=== PATIENT | female | born 1930 | race Caucasian/White ===

== ENCOUNTER 2016-07-27 11:37 | Inpatient (IN) ==
[2016-07-27] MEDS ORDERED: ONDANSETRON ODT 4 MG TABLET PO ONE ×2 (11:58→12:00)
[2016-07-27] MEDS ORDERED: SODIUM CHLORIDE 0.9% 500 ML IV STA (12:04)
[2016-07-27] MEDS ORDERED: PANTOPRAZOLE 40 MG VIAL IV STA (12:04)
[2016-07-27] MEDS ORDERED: METOCLOPRAMIDE 10 MG/2 ML VIAL IV STA (12:04)
[2016-07-27] MEDS ORDERED: hydrALAZINE 20 MG/1 ML VIAL IV STA (12:07)
--- NOTE | 2016-07-27 12:14 | Emergency Department Note ---
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 patient refuses to have b/p taken during triage, yelled loudly and stated that she was going to take b/p cuff off Mode of Arrival: Stretcher Limitations: Altered Mental Status Source: Family Time Seen by Provider: 07/27/16 12:04 - History of Present Illness HPI Narrative: This 85-year-old white female presents with a history of being her normal personality when she went to bed last night. She was called by the leasing machine tender this morning and initially on that conversation over the phone she appeared to be still her normal self. However later in the morning this individual was called by the patient who told him she was on the floor and could not move. The gentleman went to her home where he found her on the floor complaining initially of intense nausea and vomiting with inability to move; however, after a wave of emesis she began to move about and she was brought to the hospital. Since being in the ER she has been combative and very agitated; however, family states this is not out of character when she is in a stressful situation such as this. They state she complained of a headache behind the right eye yesterday although the patient does not complain of one currently. She is at this time oriented 3 but extremely anxious. During the interview she did have a severe wave of nausea which was curtailed by Matti. At the moment she is in no acute medical distress. Onset (ago): hour(s) (Patient presents 4 hours post onset of symptoms) Consistency: constant Allergies/Adverse Reactions: Allergies Allergy/AdvReac Type Severity Reaction Status Date / Time Penicillins Allergy Unknown Unknown/Unable Verified 08/16/15 10:33 to obtain Home Medications: Home Medications Medication Instructions Recorded Confirmed Type Unable To Obtain [Unable to Obtain] 07/27/16 07/27/16 History Review of System - Review of System 12 point system: reviewed and no additional remarkable complaints except as stated - Review of System Gastrointestinal: Present: as per HPI Neurological: Present: as per HPI Medical,Surgical,& Family Hx - Social History Smoking Status: Never smoker Frequency of Alcohol Use: None Type of Drug Use: None Exam Physical Examination: GENERAL: Well developed, well nourished elderly white female, very anxious, but in no acute distress. HEENT: Normocephalic. No trauma. Moist mucous membranes. EOMI. PERRLA. ENT NML NECK: Supple. No adenopathy. CARDIAC: Regular. No murmurs. Heart rate 89 CHEST: Clear to auscultation. No respiratory distress. O2 sat 97%. Firm hard nontender walnut size mass right breast lower outer quadrant ABDOMEN: Soft. Nontender. Hyperactive bowel sounds. EXTREMITIES: No trauma. Normal ROM. No pedal edema. SKIN: No diaphoresis. No rash. Bilateral stasis dermatitis, left worse than right NEURO: Alert. Oriented 3. Motor, sensory, vibratory intact. No focal deficits. Vital Signs: Vital Signs Temperature 96.3 F L 07/27/16 11:45 Pulse Rate 89 07/27/16 11:45 Respiratory Rate 18 07/27/16 11:45 O2 Sat by Pulse Oximetry 97 07/27/16 11:45 Course - Reevaluation(s) Reevaluation #1: Discussed with patient and family the fact that she still has persistent resting tachycardia and elevated blood pressure as well as symptoms of nausea dysuria and urgency that we should hospitalize at least on an observation basis for stabilization of her situation. I have advised them that in all probability this is an early UTI. - Consultations Consultation #1: Discussed with hospitalist service who will admit for further evaluation treatment. Results - Labs CBC & BMP: 07/27/16 12:14 07/27/16 12:14 Labs: I reviewed the laboratory results and noted the low potassium and surprisingly clean urinalysis. - Impressions EKG: Sinus rhythm at 89 with occasional rare PAC. Normal UT interval and QRS duration. Nonspecific ST changes. No acute injury pattern noted. - Diagnostic Findings Procedure: Chest x-ray: image reviewed by me, report reviewed by me (Borderline cardiomegaly with uncoiling of the aorta are otherwise no acute findings.), CT: image reviewed by me, report reviewed by me (Head: Cerebral atrophy with microvascular ischemia but no acute injury pattern) Disposition Clinical Impression: Hypertension, Tachycardia, Right breast mass, Early cystitis Case discussed with: patient, patient's family Condition: Stable Time of Disposition: 14:27
[2016-07-27] MEDS ORDERED: PANTOPRAZOLE 40 MG VIAL IV ONE (12:32)
[2016-07-27] MEDS ORDERED: hydrALAZINE 20 MG/1 ML VIAL ONE (12:33)
[2016-07-27] MEDS ORDERED: METOCLOPRAMIDE 10 MG/2 ML VIAL ONE (12:33)
--- NOTE | 2016-07-27 12:35 | CT Report ---
Referring physician: Basil Bingham Exam: CT brain without contrast Date: 07/27/2016 Comparison: 06/12/2016 Reason: Alteration of consciousness Technique: Axial images of the head were obtained without the use of contrast. Total DLP was 914.60 mGy*cm. Findings: No hydrocephalus or midline shift is present. There is no evidence of an acute infarction, recent intracranial hemorrhage or abnormal mass effect. Diffuse atrophy with extensive T2 hyperintensities. Some of the findings are felt to be consistent with chronic ischemic infarcts especially in the right centrum semiovale location. The osseous structures appear intact. The mastoid air cells are clear. Persistent mucosal thickening/fluid in the ethmoid air cells with arterial calcifications. Impression: No acute intracranial abnormality is identified. 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 Residual ethmoid sinusitis. The CT exam was performed using one or more of the following dose reduction techniques: Automated exposure control and adjustment of the mA and/or kV according to patient size. PROCEDURE INTERPRETED AT [facility] DEPARTMENT OF RADIOLOGY Final Report Signed by: Dr. Katie Mina
--- NOTE | 2016-07-27 12:39 | XRay Report ---
Portable chest Date: 07/27/2016 Clinical history: Alteration of consciousness Comparison: 06/12/2016 Technique: Portable AP sitting chest Findings: The heart is mildly enlarged with left ventricular prominence and uncoiling of the aorta. The lungs and mediastinum are stable in appearance with degenerative changes. Impression: Minimal cardiomegaly with left ventricle prominence and uncoiling of the aorta which can be seen with hypertensive cardiovascular disease. No acute parenchymal findings. PROCEDURE INTERPRETED AT [facility] DEPARTMENT OF RADIOLOGY Final Report Signed by: Dr. Katie Mina
[2016-07-27 12:46] LABS: Basophils % 0.6 % (0.0-0.8); Eosinophils # 0.1 10*3/uL (0.0-0.87); Eosinophils % 1.7 % (0.00-10.9); Hematocrit 40.8 VOL% (35.7-47.0); Hemoglobin 13.2 GM/DL (12.0-16.0); Immature Granulocytes % 0.3 %; Immature Granulocytes Absolute 0.02 #; Lymphocytes # 1.1 10*3/uL (1.4-4.0); Lymphocytes % 15.6 % (21.3-54.2); Mean Corpuscular HGB Conc 32.4 GM/DL (32-36); Mean Corpuscular Hemoglobin 31 PG (27-34); Mean Corpuscular Volume 94.2 FL (87-102); Mean Platelet Volume 10.2 FL (9.6-12.0); Monocytes # 0.5 10*3/uL (0.11-0.8); Monocytes % 7.4 % (1.7-12.7); Neutrophils # 5.2 10*3/uL (1.4-7.4); Neutrophils % 74.4 % (38.7-73.9); Platelet Count 189 T/CUMM (130-400); Red Blood Count 4.33 MC/CUMM (3.8-5.5); Red Cell Distribution Width 11.9 % (9.3-17.3)
[2016-07-27 12:56] LABS: PT Patient Result 10.8 SECS
[2016-07-27 13:14] LABS: Ammonia < 10 UMOL/L (11-32)
[2016-07-27 13:16] LABS: Alanine Aminotransferase 22 U/L (13-56); Albumin 3.6 G/DL (3.4-5.0); Alkaline Phosphatase 80 U/L (45-117); Aspartate Amino Transferase 21 U/L (0-37); Blood Urea Nitrogen 18 MG/DL (7-18); CKMB % 3.6 %; Free T4 (Free Thyroxine) 1.07 NG/DL (0.76-1.46); Glucose 142 MG/DL (74-106); Potassium 3.4 MMOL/L (3.5-5.1); Sodium 143 MMOL/L (136-145); Total Protein 6.9 G/DL (6.4-8.3); Troponin I Only 0.017 NG/ML (0.00-0.045)
[2016-07-27] MEDS ORDERED: POTASSIUM BICARB EFFERVESCENT 25 MEQ TABLET PO ONE (13:36)
--- NOTE | 2016-07-27 13:40 | EKG Report ---
Stationary ECG Study [facility] ER Test Date: 07/27/2016 1:03:58 PM Pat Name: DANDY MENDIOLA Department: Room: 291 Gender: F Mangle Tender: : 1930 Requested by: Basil South Order Number: [id number] Reading MD: CYNTHIA CABALLERO Intervals [place] Rate: 89 P: 103 IN: 134 QRS: 12 QRSD: 93 T: 89 QT: 388 QTc: 435 Interpretive Statements SINUS RHYTHM WITH OCCASIONAL SUPRAVENTRICULAR PREMATURE COMPLEXES NONSPECIFIC T-WAVE ABNORMALITY Electronically Signed On 07-28-16 12:03:52 CDT by CYNTHIA CABALLERO [email or web address]
[2016-07-27 13:55] LABS: Apearance,Urine CLEAR (Clear); Bacteria,Urine Occasional /HPF (Few); Bilirubin,Urine Negative (Negative); Blood, Urine Negative (Negative); Glucose,Urine (UA) 50 mg/dL (Negative); Ketones,Urine 5 mg/dL (Negative); Mucus,Urine Occasional /LPF (Occasional); Nitrite,Urine Negative (Negative); Protein,Urine 100 MG/DL; RBC,Urine 2 /HPF (0-4); Squamous Epithelial Cell,Urine Occasional /HPF (0-10); Urine Color Yellow (Yellow); Urine Specific Gravity 1.012 (1.001-1.035); Urine Urobilinogen < 2.0 EU/DL (0.2-1.0); WBC,Urine 2 /HPF (0-6)
[2016-07-27 14:01] LABS: Barbiturates Screen,Urine Negative (Negative); Benzodiazepines Screen,Urine Negative (Negative); Cannabinoid Screen,Urine Negative (Negative); Opiate Screen,Urine Negative (Negative); Phencyclidine Screen,Urine Negative (Negative)
[2016-07-27] MEDS ORDERED: METOPROLOL TARTRATE 5 MG/5 ML VIAL IV STA (14:24)
[2016-07-27] MEDS ORDERED: MAGNESIUM SULF RIDER 2 GM in PREMIX 1 EACH IV PRN (14:32)
[2016-07-27] MEDS ORDERED: MAGNESIUM SULF RIDER 4 GM in PREMIX 1 EACH IV PRN (14:32)
[2016-07-27] MEDS ORDERED: POTASSIUM CHLORIDE 20 MEQ PACK ONE (15:04)
--- NOTE | 2016-07-27 15:06 | Hospitalist History & Physical ---
Assessment and Plan (1) Tachycardia Status: Acute Assessment and plan: Not sure the cause of this probably is a little dehydration we'll hydrate overnight were also supplement potassium and see the patient does Current Visit: Yes (2) Nausea Status: Acute Assessment and plan: Treat symptomatically, check amylase and lipase, check a KUB to make sure there is no evidence of any obstruction Current Visit: Yes (3) Hypertension Status: Acute Assessment and plan: Watch right now start home medicines and see how she does Current Visit: Yes (4) Breast mass, right Status: Acute Assessment and plan: Check mammogram Current Visit: Yes History of Present Illness Chief complaint: nausea vomiting altered mental status History of present illness: Ms. Ya is a 85 year old female was her usual state of health last night when she went to bed and then this morning she states that she had difficulty getting up this morning and was found on the floor and was unable to get back up she's dated she began throwing up shortly before then and was apparently very combative and agitated patient denies any diarrhea or fever she also complained of a headache this started last night behind her right eye arrival she was anxious but oriented his had multiple spells of nausea while here in the emergency room. She denies any chest pain or chest tightness she denies any shortness of breath has no chills fever nothing seems to make her nausea better nothing seems to make it worse no other associated symptoms Workup in the emergency room showed a potassium of 3.4 bun 18 a creatinine of 0.9 and glucose of 142 normal thyroid functions unremarkable urinalysis and negative drug screen. chest x-ray was normal EKG normal sinus rhythm CT head unremarkable Home Medications Medication Instructions Recorded Confirmed Type Unable To Obtain [Unable to Obtain] 07/27/16 07/27/16 History Allergies Allergy/AdvReac Type Severity Reaction Status Date / Time Penicillins Allergy Unknown Unknown/Unable Verified 08/16/15 10:33 to obtain Medical,Surgical,& Family Hx - Medical History Cardio: History of: Hypertension Psychological: History of: Anxiety Disorders - Surgical History Surgical History: noncontributory - Family History Family History: noncontributory - Social History Smoking Status: Never smoker Frequency of Alcohol Use: None Type of Drug Use: None Review of systems: Constitutional: No fatigue or fever Eyes: No loss of vision or blurred vision Ears: No decreased hearing no ear pain Mouth no lip swelling or sore throat Cardiovascular no chest pain no claudication Respiratory no cough or shortness of breath GI no abdominal pain or bloating or bleeding : No urinary frequency or hesitancy musculoskeletal: No Arthralgias or back pain, very weak Psychiatric: Confusion memory loss Endocrine: No polydipsia or polyuria Hematology: No easy bleeding or bruising 12 point review of systems otherwise unremarkable Exam - Constitutional Vitals: Period Temp Pulse Resp BP Sys/Baez Pulse Ox Last 24 Hr 96.3 F 89 18 97 Exam: Constitutional: Patient in no apparent distress. Anxious Eyes: Conjunctivae and lids are normal Pupils equal round react to light and accommodation irises are normal HEENT: External ears and nose without lesions masses or scarring Oropharynx without erythema exudates or thrush Neck is supple without masses no jugular venous distention Lungs: Lungs are clear to auscultation and resonant percussion Cardiovascular: Heart auscultation regular rate and rhythm without murmur rub or gallop PMI in the midclavicular line by palpation carotid arteries 2+ without bruits bowel abdomen: Bowel sounds normoactive no masses no rebound or regular tenderness no organomegaly Lymphatic: No anterior posterior cervical or axillary adenopathy Musculoskeletal: No active synovitis no malalignment of the joints good range of motion of upper and lower extremities Skin : normal to inspection and palpation Neurologic: Cranial nerves II through XII intact motor sensory intact DTRs 2+ negative cerebellar signs Psychiatric: Oriented to person place and time normal memory normal mood and affect normal judgment Rx scarring of her lower extremities looks like chronic venous insufficiency no evidence of edema, diffusely weak Results - Labs CBC & BMP: 07/27/16 12:14 07/27/16 12:14
[2016-07-27] MEDS: ONDANSETRON 4 MG/2 ML VIAL IV PRN ×3 (15:20→22:44)
[2016-07-27 16:27] LABS: CKMB % 3.3 %
[2016-07-27 16:32] LABS: Troponin I Only 0.063 NG/ML (0.00-0.045)
[2016-07-27] MEDS: SODIUM CHLORIDE 0.9% 1,000 ML IV SCH (16:34)
[2016-07-27] MEDS: CIPROFLOXACIN INJ 400 MG in PREMIX 1 EACH IV SCH (16:38)
[2016-07-27] MEDS: metroNIDAZOLE INJ 500 MG in PREMIX 1 EACH IV SCH (18:52)
[2016-07-27] MEDS: POTASSIUM CHLORIDE RIDER 10 MEQ in PREMIX 1 EACH IV PRN ×3 (21:16→23:55)
[2016-07-28] MEDS: SODIUM CHLORIDE 0.9% 1,000 ML IV SCH ×5 (01:05→23:14)
[2016-07-28] MEDS: metroNIDAZOLE INJ 500 MG in PREMIX 1 EACH IV SCH ×5 (01:09→22:10)
[2016-07-28] MEDS: CIPROFLOXACIN INJ 400 MG in PREMIX 1 EACH IV SCH ×2 (03:17→16:45)
[2016-07-28] MEDS: ONDANSETRON 4 MG/2 ML VIAL IV PRN ×2 (04:52→08:00)
[2016-07-28 08:37] LABS: Basophils % 0.1 % (0.0-0.8); Eosinophils % 0.2 % (0.00-10.9); Hemoglobin 11.8 GM/DL (12.0-16.0); Immature Granulocytes % 0.3 %; Immature Granulocytes Absolute 0.03 #; Lymphocytes # 0.9 10*3/uL (1.4-4.0); Lymphocytes % 9.3 % (21.3-54.2); Mean Corpuscular HGB Conc 31.9 GM/DL (32-36); Mean Corpuscular Hemoglobin 30 PG (27-34); Mean Corpuscular Volume 94.9 FL (87-102); Mean Platelet Volume 10.5 FL (9.6-12.0); Monocytes # 0.7 10*3/uL (0.11-0.8); Monocytes % 7.9 % (1.7-12.7); Neutrophils # 7.7 10*3/uL (1.4-7.4); Neutrophils % 82.2 % (38.7-73.9); Platelet Count 182 T/CUMM (130-400); Red Cell Distribution Width 12.1 % (9.3-17.3); White Blood Count 9.4 T/CUMM (4-12)
[2016-07-28] MEDS ORDERED: PANTOPRAZOLE 40 MG VIAL IV SCH (09:00)
--- NOTE | 2016-07-28 09:02 | Hospitalist Progress Note ---
Assessment and Plan (1) Tachycardia Status: Acute Assessment and plan: Not sure the cause of this probably is a little dehydration we'll hydrate overnight were also supplement potassium and see the patient does 3 history is pending this morning but she still remains weak, sure what's going on, her tachycardia has improved we'll do some orthostatic vital signs to see was going on here, because is up a little bit but I don't think that means anything we'll continue to follow them Current Visit: Yes (2) Nausea Status: Acute Assessment and plan: Treat symptomatically, check amylase and lipase, check a KUB to make sure there is no evidence of any obstruction 3 ongoing nausea, normal lipase and amylase him to go ahead and ask GI to evaluate Current Visit: Yes (3) Hypertension Status: Acute Assessment and plan: Watch right now start home medicines and see how she does Current Visit: Yes (4) Breast mass, right Status: Acute Assessment and plan: Check mammogram Current Visit: Yes Hospitalist: Subjective Interval history: Patient still feels like she is weak today she still having nausea intermittently when she stands him still feels weak when she stands up Exam - Constitutional Vitals: Period Temp Pulse Resp BP Sys/Baez Pulse Ox Last 24 Hr 97.1 F-99.1 F 88-99 16-20 147-218/74-102 94-96 Exam: Constitutional: Patient in no apparent distress. Anxious Eyes: Conjunctivae and lids are normal Pupils equal round react to light and accommodation irises are normal HEENT: External ears and nose without lesions masses or scarring Oropharynx without erythema exudates or thrush Neck is supple without masses no jugular venous distention Lungs: Lungs are clear to auscultation and resonant percussion Cardiovascular: Heart auscultation regular rate and rhythm without murmur rub or gallop PMI in the midclavicular line by palpation carotid arteries 2+ without bruits bowel abdomen: Bowel sounds normoactive no masses no rebound or regular tenderness no organomegaly Lymphatic: No anterior posterior cervical or axillary adenopathy Musculoskeletal: No active synovitis no malalignment of the joints good range of motion of upper and lower extremities Skin : normal to inspection and palpation Neurologic: Cranial nerves II through XII intact motor sensory intact DTRs 2+ negative cerebellar signs Psychiatric: Oriented to person place and time normal memory normal mood and affect normal judgment Rx scarring of her lower extremities looks like chronic venous insufficiency no evidence of edema, diffusely weak Results - Labs CBC & BMP: 07/28/16 08:05 07/27/16 12:14
[2016-07-28 09:09] LABS: Albumin 3.3 G/DL (3.4-5.0); Bilirubin,Total 0.5 MG/DL (0.2-1.0); Calcium 8.7 MG/DL (8.5-10.1); Magnesium 2.1 MG/DL (1.8-2.4); Potassium 3.8 MMOL/L (3.5-5.1); Total Protein 5.9 G/DL (6.4-8.3)
[2016-07-28 09:22] LABS: CKMB % 2.6 %
[2016-07-28 09:23] LABS: Troponin I Only 0.156 NG/ML (0.00-0.045)
[2016-07-28] MEDS: MECLIZINE 25 MG TABLET PO SCH ×3 (10:58→21:36)
[2016-07-28] MEDS ORDERED: PROMETHAZINE INJ 12.5 MG in SODIUM CHLORIDE 0.9% 50 ML IV PRN (12:21)
[2016-07-28] MEDS ORDERED: LORazepam 2 MG/1 ML VIAL IV PRN (12:21)
--- NOTE | 2016-07-28 12:28 | Gastrointestinal Consult Note ---
Assessment and Plan (1) Nausea and vomiting Status: Acute Assessment and plan: This patient seems to have nausea and vomiting possibly related to vertigo versus extreme gaze deviation. She may have labyrinthitis versus benign positional vertigo versus possible disturbance in her midbrain or cerebellum associated with TIA versus stroke. I do not believe the problem is her GI tract. I will start the patient on some Protonix basically to keep the acidity down her esophagus and prevent secondary erosive esophagitis. We can try putting the patient on little bit of Phenergan as the Zofran has been ineffective for her. I would not use metoclopramide, although the Antivert is a definitely something that could be tried. In patients have had like this in the past sometimes they have benefited from a low dose of lorazepam, will write this as an option as well. He may wish to get ENT involved and perhaps they can perform an Rebecca maneuver. if appropriate in their opinion. Current Visit: Yes (2) Constipation Status: Acute Assessment and plan: The patient states that she handles this with a single prune at home, but this is not a serious problem for the patient. Under no circumstances would she like to get another colonoscopy, nor does she wish to have an upper endoscopy, as she has related to me in no uncertain terms. We will certainly hold off on endoscopy for the present. Current Visit: Yes History of Present Illness Chief complaint: Nausea and vomiting on sudden movement/position change History of present illness: Ms. Ya is a 85 year old female who is actually a fairly good historian who is accompanied by her son and [id number] who provide additional history. She has never had a history of heartburn or indigestion of any significance and really does not take much in the way of medication at baseline. She certainly does not take NSAIDs. Yesterday she awoke with difficulty caused by extreme nausea upon getting out of the bed. Patient is fairly stable when she is laying flat in bed or upright but when changing positions seems to become extremely nauseated. On head motions at the bedside I do not appreciate gross nystagmus either on horizontal or vertical head motions however the patient looking in various directions seems to make her extremely nauseated even when her head is still. She does not have heartburn, indigestion, difficulty with swallowing, pain on swallowing, abdominal pain, or diarrhea. She does have mild constipation for which she takes one single prune per night. She was brought to the emergency room for this nausea and vomiting and has been admitted with hydration. Zofran does almost nothing and the Antivert does not appear to be effective for her. She has not yet tried Phenergan. She appears to be mildly agitated at times and may benefit from a low-dose benzodiazepine. She does not have a history of exposure to sick contacts. Home Medications Medication Instructions Recorded Confirmed Type Unable To Obtain [Unable to Obtain] 07/27/16 07/27/16 History Allergies Allergy/AdvReac Type Severity Reaction Status Date / Time Penicillins Allergy Unknown Unknown/Unable Verified 08/16/15 10:33 to obtain Medical,Surgical,& Family Hx - Medical History Cardio: History of: Hypertension Psychological: History of: Anxiety Disorders - Surgical History Reproductive Surgeries: Surgical HX of;: Hysterectomy - Family History Family History: Reports;: Family Cancer (COLON), Family Hypertension Denies;: Family Diabetes, Family Heart Disease, Family Hematology, Family Psychiatric Problems, Family Stroke - Social History Smoking Status: Never smoker Frequency of Alcohol Use: None Type of Drug Use: None Review of systems: Constitutional: Denies fever, chills, but positive for recent nausea, and vomiting Eyes: Denies dry eyes, and scleral icterus HENT: Denies headaches Cardiovascular: Denies acute chest pain and claudication Respiratory: Denies shortness of breath, wheezing, and difficulty breathing, denies cough Gastrointestinal: As noted in the HPI Genitourinary: Denies dysuria and hematuria Neurologic: Denies vision loss, and loss of sensation Musculoskeletal: Patient does admit to some, joint stiffness, and muscular weakness but is without swelling Psychiatric: Denies depression and pernell symptoms Heme-Lymph: Denies easy bruising, lymph node enlargement or tenderness, night sweats, excessive bleeding Allergies-immunologic: Denies pruritus and rhinorrhea Exam - Constitutional Vitals: Period Temp Pulse Resp BP Sys/Baez Pulse Ox Last 24 Hr 97.1 F-99.1 F 88-99 16-20 147-218/74-102 94-96 General appearance: no acute distress Exam: Constitutional: Well-developed, well-nourished, alert, and in no acute distress Head and face: Head: Normocephalic atraumatic Eyes: Conjunctiva without injection, no gross scleral icterus, pupils equal and round bilaterally. No nystagmus on horizontal or vertical head movement, however looking in all cardinal directions seem to bring on the vomiting especially up and down. Ears: Intact to conversation in both ears Nose: External appearance is normal, nares patent Mouth: Oral mucous membranes moist without erythema dentition noted to be without erosion, the patient has multiple missing teeth and a torus palantine Neck: Normal appearance, no masses or tenderness, trachea midline Thyroid: Gland midline and appropriate size for age Respiratory: Normal respiratory effort, clear to auscultation without wheezes, rhonchi or rales Cardiovascular: Regular rate and rhythm, normal S1, S2, the exam is without rubs, murmurs or gallops. Gastrointestinal: Nontender to palpation, normal active bowel sounds, tone normal without rigidity or guarding, no masses present, no hepatomegaly, no spleen tip felt. No rectal exam obtained. Lymphatic: Neck without adenopathy, axilla without lymphadenopathy present Musculoskeletal: Right and left lower extremities without evidence of edema Skin and subcutaneous tissue: No rashes or ulcerations noted, normal skin turgor, digits and nails without clubbing/cyanosis/deformities. Neurologic: The patient is grossly oriented to person place and time, cranial nerves show tongue movements are normal with normal tongue extrusion midline, light touch sensation is intact. Psychiatric: No hallucinations or delusions are present, does not appear depressed, ? Early dementia? Results - Labs CBC & BMP: 07/28/16 08:05 07/28/16 08:05
[2016-07-28] MEDS: PANTOPRAZOLE 40 MG VIAL IV SCH (21:38)
[2016-07-29] MEDS: CIPROFLOXACIN INJ 400 MG in PREMIX 1 EACH IV SCH ×2 (05:52→15:16)
[2016-07-29] MEDS: metroNIDAZOLE INJ 500 MG in PREMIX 1 EACH IV SCH ×2 (07:39→10:14)
--- NOTE | 2016-07-29 09:12 | Gastrointestinal Progress Note ---
Assessment and Plan (1) Nausea and vomiting Status: Acute Assessment and plan: This patient seems to have nausea and vomiting possibly related to vertigo versus extreme gaze deviation. She may have labyrinthitis versus benign positional vertigo versus possible disturbance in her midbrain or cerebellum associated with TIA versus stroke. I do not believe the problem is her GI tract. I will start the patient on some Protonix basically to keep the acidity down her esophagus and prevent secondary erosive esophagitis. We can try putting the patient on little bit of Phenergan as the Zofran has been ineffective for her. I would not use metoclopramide, although the Antivert is a definitely something that could be tried. In patients have had like this in the past sometimes they have benefited from a low dose of lorazepam, will write this as an option as well. He may wish to get ENT involved and perhaps they can perform an Rebecca maneuver. if appropriate in their opinion. 07/29/16--This patient has not had any further nausea and vomiting. I switched around some of her medications yesterday and gave her the option of taking some Ativan potentially. She would like to advance her diet from clear liquids to something more solid and I agree. Unfortunately vertigo is out of my specific discipline and so I do not feel competent to perform the Rebecca maneuver on this patient but if you feel that her symptoms warranted she could certainly be referred to neurology or ENT to get this taken care of. This seems more like vertigo, however gastroenteritis is still the differential that she may be improving from. We will see how she does on a solid diet, will likely change her Protonix to p.o. tomorrow. What are we treating with the Cipro and Flagyl? Current Visit: Yes (2) Constipation Status: Acute Assessment and plan: The patient states that she handles this with a single prune at home, but this is not a serious problem for the patient. Under no circumstances would she like to get another colonoscopy, nor does she wish to have an upper endoscopy, as she has related to me in no uncertain terms. We will certainly hold off on endoscopy for the present. 07/29/16--Treated with prunes as needed the patient. Current Visit: Yes Gastroenterology - PN: Subj Interval history: No further complaints of nausea and vomiting on the clear liquid diet. The patient has been having good acid suppression with Protonix, she feels extremely weak in the bed and has been participating in physical therapy to a very minimal extent. Her vertiginous symptoms seem a bit better today, we may wish a formal evaluation by neurology or ENT potentially. Exam (Progress Note) - Constitutional Vitals: Period Temp Pulse Resp BP Sys/Baez Pulse Ox Last 24 Hr 97.4 F-98.6 F 72-87 16-20 155-205/70-100 90-97 General appearance: no acute distress - Head Head exam: Present: normocephalic, atraumatic - Eye Eye exam: Present: EOMI - Respiratory Respiratory exam: Present: clear to auscultation bilaterally - Cardiovascular Cardiovascular exam: Present: regular rate and rhythm - GI/Abdominal GI/Abdominal exam: Present: normal bowel sounds, soft. Absent: distended, tenderness, rebound - Back Exam Back exam: Present: normal inspection - Neurological Exam Neurological exam: Present: alert, oriented X3 - Psychiatric Psychiatric exam: Present: normal affect, normal mood - Skin Skin exam: Present: warm Results - Labs CBC & BMP: 07/28/16 08:05 07/28/16 08:05
[2016-07-29] MEDS: PANTOPRAZOLE 40 MG VIAL IV SCH ×2 (10:14→20:58)
[2016-07-29] MEDS: MECLIZINE 25 MG TABLET PO SCH ×3 (10:14→20:58)
[2016-07-29] MEDS: SODIUM CHLORIDE 0.9% 1,000 ML IV SCH (11:08)
--- NOTE | 2016-07-29 13:04 | Magnetic Resonance Report ---
History: Nausea and vomiting. Vertigo Date: 07/29/2016 Study: MRI brain with and without IV contrast Comparison exam: CT head July 27, 2016. No previous MRI brain The brain was imaged in 3 planes on the 1.5 Alanis magnet with and without IV contrast, to include diffusion, T2, FLAIR, and pre-and postcontrast T1-weighted sequences. 13 ml Dotarem contrast was given IV without immediate complication under the personal supervision of this radiologist. The ventricles are midline in position without evidence of hydrocephalus. There is no Chiari I malformation. 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 There is a punctate focus of restricted diffusion compatible with recent ischemia measuring grossly 5 mm or less in the right frontal deep white matter, likely within the 6 hour to 4 day range. There is no acute cortical ischemia. There are numerous punctate scattered foci of hypointense gradient echo signal compatible with scattered microhemorrhage involving cortex and subcortical white matter of both cerebral hemispheres, lenticular nuclei bilaterally, periventricular white matter bilaterally, cerebellar hemispheres bilaterally, and also the yulissa bilaterally. This could be related to hypertensive vasculopathy rather than cerebral amyloid angiopathy. There is no acute hemorrhage. There is no area of mass effect or abnormal brain parenchymal enhancement. There is a large amount of patchy increased FLAIR and T2 signal in the periventricular and deep white matter without mass effect or enhancement compatible with changes of small vessel disease. Areas of chronic lacunar infarction are noted in the posterior right centrum semiovale and bilateral yulissa. There is no obvious cerebellopontine angle mass. There is no extra-axial hematoma. There is a normal flow void in the superior sagittal sinus. There is no gross liver abnormality in the jena of Thomas region. Remote post cataract surgery changes of either globe are present. Impression: Small focus of recent lacunar ischemia in the right frontal deep white matter. There is no acute hemorrhage. There is no evidence of acute cortical ischemia. There is evidence of chronic scattered microhemorrhage involving the cerebral hemispheres and cerebellar hemispheres bilaterally as detailed above. 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 Chronic ischemic changes PROCEDURE INTERPRETED AT [facility] DEPARTMENT OF RADIOLOGY Final Report Signed by: Dr. Soledad Masterson
--- NOTE | 2016-07-29 14:32 | Mammography Report ---
History: Palpable right breast mass Bilateral full-field digital diagnostic mammogram with CAD Date:07/29/2016 12:00 AM Comparison: October 11, 2015 digital mammogram from [facility] Full-field digital diagnostic bilateral mammography is performed. CAD is utilized. The breasts are imaged in the CC and lateral to medial projections. The breast tissue is of occasional scattered fibroglandular density. There is a lobular breast mass in the upper outer right breast at its middle one third measuring 35 x 23 x 29 mm, as compared to 24 x 14 x 13 mm on the comparison study. Breast ultrasound was recommended and was performed, showing a solid heterogeneous mass. Findings were discussed with Dr. Sosa by telephone and with the patient in person. There is no additional mass. There are some occasional scattered benign calcifications. There is no skin thickening or axillary lymphadenopathy. Impression: Enlarging breast mass at the 10:00 position, highly suggestive of malignancy. This mass is increased in size from the previous study. No additional findings are identified. Patient information is entered into a reminder system with target due date for the next mammogram BI-RADS category: 5 Highly suggestive of malignancy, appropriate action should be taken PROCEDURE INTERPRETED AT [facility] DEPARTMENT OF RADIOLOGY Final Report Signed by: Dr. Soledad Masterson
--- NOTE | 2016-07-29 14:35 | Ultrasound Report ---
History: Abnormal mammogram. Breast mass Date: 07/29/2016 Study: Ultrasound right breast, targeted Comparison exam: October 11, 2015 breast ultrasound Real-time ultrasound images were captured and archived. There is a lobular hypoechoic mass of heterogeneous echogenicity in the right breast at the 9 to 10:00 position. This measures 39 x 22 x 22 mm maximum dimensions. Incidental note is made of a 7 mm short axis diameter lymph node in the right breast at the 10:00 position, with no obvious cortical thickening. Impression: 39 mm solid mass of heterogeneous echogenicity in the right breast at the 9 to 10:00 position which is highly suspicious for breast malignancy BI-RADS 5 Highly suspicious for malignancy: appropriate action should be taken PROCEDURE INTERPRETED AT [facility] DEPARTMENT OF RADIOLOGY Final Report Signed by: Dr. Soledad Masterson
--- NOTE | 2016-07-29 15:53 | Hospitalist Progress Note ---
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 Already reported to family will not pursue at this time. Current Visit: Yes (3) Hypertension Status: Acute Assessment and plan: coreg 6.25 mg po bid Current Visit: Yes (4) Elevated troponin I level Status: Acute Assessment and plan: asa, consult cardiology Current Visit: Yes Hospitalist: Subjective Interval history: Spent 40 minutes today talking with family. Apparently her dowel pin worker who is been caring for their mother has access to her car, her house and they are concerned that she is being taken advantage of. They have requested no visitors and will move her and put her under a confidential so no when can have access to her medical information. Patient's family also said the patient can be paranoid at times. Patient also has a mass in her right breast. In speaking with the family the son was only aware of that he said yesterday but then he backed up after he said that and said he knew knew about it. Patient had this mass in her breast at [facility] and had declined treatment according to the records. Exam - Constitutional Vitals: Period Temp Pulse Resp BP Sys/Baez Pulse Ox Last 24 Hr 97.4 F-98.6 F 72-91 16-20 158-205/66-100 90-97 Exam: Heart Rate-[RRR] Lungs-[CTAB] GI-[+bs soft, NT] Ext-[1+ edema] Neuro [Motor 4/5], [alert and oriented times 2] psych [depressed mood and affect] General [no acute distress] Results - Labs CBC & BMP: 07/28/16 08:05 07/28/16 08:05 Lab Results: I have reviewed the past 24 hour labs Labs: Blood cultures 2 negative - Diagnostic Findings Procedure: MRI: report reviewed by me (MRI of brain shows microhemorrhages but no acute hemorrhage and no acute stroke)
--- NOTE | 2016-07-29 16:58 | Cardiology Consult Note ---
Assessment and Plan (1) CVA (cerebral vascular accident) Status: Acute Assessment and plan: 1. 85-year-old WF with recently untreated severe hypertension ("I always forget to take them") who presented with persistent nausea and vertigo associated with trivial elevation of troponin of 0.15, now improved with meclizine 2. Reported previous breast mass; declined workup 3. MRI suggests possible recent CVA; defer to primary service. 4. Which echocardiogram in the morning to evaluate for structural heart disease 5. Do not suspect acute coronary syndrome 6. Would gradually bring blood pressure; observe for now as his come down from 200 to 150s systolic Current Visit: Yes (2) Nausea Status: Acute Current Visit: Yes (3) Hypertension Status: Acute Current Visit: Yes (4) Vertigo Status: Acute Current Visit: Yes History of Present Illness - Consult Narrative History of present illness: Ms. Ya is a 85 year old female who presented with chronic severe nausea and dizziness. It sounds more like vertigo although it does get worse when she stands up. She clearly has a sensation of the room moving. In her workup she was found to have a troponin of 0.1. She denies shortness of breath or chest discomfort. She given meclizine and now is able to keep food down today for the first time. She denies any previous cardiac problems. CC: Tulio Isaac MD - Home Medications and Allergies Home Medications: Home Medications Medication Instructions Recorded Confirmed Type Enalapril Tab [Vasotec Tab] 20 mg PO DAILY 07/29/16 07/29/16 History Allergies/Adverse Reactions: Allergies Allergy/AdvReac Type Severity Reaction Status Date / Time Penicillins Allergy Unknown Unknown/Unable Verified 08/16/15 10:33 to obtain Medical,Surgical,& Family Hx - Medical History Cardio: History of: Hypertension Psychological: History of: Anxiety Disorders - Surgical History Reproductive Surgeries: Surgical HX of;: Hysterectomy - Family History Family History: Reports;: Family Cancer (COLON), Family Hypertension Denies;: Family Diabetes, Family Heart Disease, Family Hematology, Family Psychiatric Problems, Family Stroke - Social History Smoking Status: Never smoker Frequency of Alcohol Use: None Type of Drug Use: None Physical Examination Vital Signs Temp Pulse Resp Pulse Ox 96.3 F L 89 18 97 07/27/16 11:45 07/27/16 11:45 07/27/16 11:45 07/27/16 11:45 General: Present: Appears Well, No Apparent Distress Neck: Present: Supple Neck Cardiac: Present: Reg Rate and Rhythm, Regular Rate, Regular Rhythm Lungs: Present: Normal Exam, No Wheeze, Rales, Rhonchi Abdomen: Present: Soft. Absent: Tender Extremities: Present: No Edema. Absent: Cool, Cold Result/EKG - Labs CBC & BMP: 07/28/16 08:05 07/28/16 08:05
[2016-07-29] MEDS: ASPIRIN EC 81 MG TABLET PO SCH (17:36)
[2016-07-29] MEDS: CARVEDILOL 6.25 MG TABLET PO SCH (20:58)
[2016-07-29] MEDS: ATORVASTATIN 40 MG TABLET PO SCH (20:58)
[2016-07-30 07:26] LABS: Risk Ratio 2.68; VLDL CHOLESTEROL 7.8 MG/DL
--- NOTE | 2016-07-30 08:30 | EKG Report ---
Stationary ECG Study [facility] Test Date: 07/30/2016 8:29:22 AM Pat Name: DANDY MENDIOLA Department: Room: 530 Gender: F R Programmer: : [id number] Requested by: Mitesh Crvaen Order Number: [id number] Reading MD: ARTURO SYKES Intervals [place] Rate: 83 P: 999 CT: 0 QRS: -2 QRSD: 88 T: 64 QT: 398 QTc: 438 Interpretive Statements Sinus rhythm with frequent PACs NONSPECIFIC T-WAVE ABNORMALITY Electronically Signed On 07-31-16 14:37:36 CDT by ARTURO SYKES [email or web address]
[2016-07-30] MEDS: PANTOPRAZOLE 40 MG VIAL IV SCH ×2 (09:29→21:45)
[2016-07-30] MEDS: MECLIZINE 25 MG TABLET PO SCH ×3 (09:29→21:37)
[2016-07-30] MEDS: CARVEDILOL 6.25 MG TABLET PO SCH ×2 (09:29→21:37)
[2016-07-30] MEDS: ASPIRIN EC 81 MG TABLET PO SCH (09:29)
[2016-07-30] MEDS: DESITIN 4OZ/NYSTATIN 15 GRAM MIXTURE PASTE TOP SCH ×2 (10:12→21:43)
[2016-07-30] MEDS: SODIUM CHLORIDE 0.9% 1,000 ML IV SCH (10:12)
--- NOTE | 2016-07-30 11:45 | Discharge Summary ---
Hospital Course - Hospital Course Hospital Course: 85-year-old female who presents from home with complaints of vertigo with associated nausea and vomiting. GI Dr. Patterson was consulted and told me that he thought she had benign positional vertigo causing her nausea and vomiting which has since resolved. Patient is still very off balance. MRI of the brain showed small lacunar ischemia in the right frontal deep white matter with multiple chronic old scattered microhemorrhages involving bilateral cerebral hemispheres and bilateral cerebellar hemispheres. 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 Family is requesting [facility] for acute rehab for stroke. We started her on an aspirin 81 mg p.o. daily. Patient actually needs Eliquis as she has atrial fib but it will put her at higher risk for bleeding. My goal most importantly is to control her blood pressure. Family has requested [facility] acute rehab which [employer] may or may not approve but patient can pay [place]. Echocardiogram is pending but ejection fraction looks normal. Total cholesterol is 185 with triglycerides of 39 and LDL of 102. Her mamogram showed a right breast mass consistent with most likely breast cancer. Patient and the family do not want to pursue this at this time or in the future. Our goal is to get patient more functional. I will discuss the risks of Eliquis with the family. - Time spent with patient Time with patient DS: Greater than 30 minutes Diagnosis - Discharge Diagnosis (1) Vertigo Status: Acute (2) Breast mass, right Status: Acute (3) Hypertension Status: Acute (4) Elevated troponin I level Status: Acute Discharge Plan - Discharge Data Disposition: Rehab Fac/Unit W Plan Readm Condition at Discharge: Stable Discharge Diet: heart healthy Activity: resume usual activities as tolerated, as per physical therapy Hygiene: no restrictions - Discharge Medications New Aspirin EC Tab 81 mg PO DAILY tablet Carvedilol [Coreg] 6.25 mg PO BID tablet Meclizine [Antivert] 25 mg PO TID tablet Pantoprazole Tab [Protonix Tab] 40 mg PO DAILY #60 tablet Atorvastatin [Lipitor] 40 mg PO BEDTIME tablet Continue Enalapril Tab [Vasotec Tab] 20 mg PO DAILY - Follow Up or Referral - Forms/Instructions Exam - Constitutional Vitals: Period Temp Pulse Resp BP Sys/Baez Pulse Ox Last 24 Hr 97.1 F-98.4 F 75-94 16-18 130-210/58-99 92-95 General appearance: no acute distress, morbidly obese - Respiratory Respiratory exam: Present: clear to auscultation bilaterally. Absent: rhonchi, wheezes - Cardiovascular Cardiovascular exam: Present: irregular rhythm - GI/Abdominal GI/Abdominal exam: Present: normal bowel sounds, soft. Absent: tenderness - Neurological Exam Neurological exam: Present: alert, abnormal gait - Psychiatric Psychiatric exam: Present: normal affect, normal mood - Skin Skin exam: Present: normal color, warm Discharge Results Labs on day of discharge: Labs from last 24 hours 07/30/16 06:18 Triglycerides 39 Cholesterol 185 LDL Cholesterol 102.0 VLDL Cholesterol 7.8 HDL Cholesterol 69 H Heart Disease Risk Ratio 2.68 Preliminary micro results at discharge 07/27/16 15:58 Blood Culture - Preliminary Blood No growth at 1 day 07/27/16 15:58 Blood Culture - Preliminary Blood No growth at 1 day DS: Provider Date of admission: 07/27/16 14:29 Primary care physician: . No PCP Attending physician on admission: Tulio Isaac MD Consults: 07/27/16 14:56 Consult to Pharmacy [CONS] Routine Reason for Pharmacy Consult: Adjust Meds Renal Funct 07/27/16 15:19 Consult to Occupational Therapy [CONS] Routine Reason for Occupational Therapy: Evaluate and Treat Consult to Physical Therapy [CONS] Routine Reason for Physical Therapy: Evaluate and Treat 07/28/16 09:04 Consult to Physician [CONS] Routine Comment: Consulting Provider: Cassius Patterson Consult to Specialist Group: Gastroenterology When should Consulting Provider be notified: Now Person Notified: Dr. Patterson Date Notified: 07/28/16 Time Notified: 09:35 07/29/16 16:10 Consult to Physician [CONS] Routine Comment: positive troponins Consulting Provider: Ignacio Andersen Person Notified: HAVEN Date Notified: 07/29/16 Time Notified: 16:22 Discharging clinician: Mahsa Sosa MD
[2016-07-30] MEDS ORDERED: APIXABAN 2.5 MG TABLET PO SCH (12:00)
[2016-07-30] MEDS ORDERED: APIXABAN 5 MG TABLET PO SCH (12:00)
[2016-07-30] MEDS: ENALAPRIL 10 MG TABLET PO SCH (12:25)
--- NOTE | 2016-07-30 13:38 | Gastrointestinal Progress Note ---
Assessment and Plan (1) Nausea and vomiting Status: Acute Assessment and plan: This patient seems to have nausea and vomiting possibly related to vertigo versus extreme gaze deviation. She may have labyrinthitis versus benign positional vertigo versus possible disturbance in her midbrain or cerebellum associated with TIA versus stroke. I do not believe the problem is her GI tract. I will start the patient on some Protonix basically to keep the acidity down her esophagus and prevent secondary erosive esophagitis. We can try putting the patient on little bit of Phenergan as the Zofran has been ineffective for her. I would not use metoclopramide, although the Antivert is a definitely something that could be tried. In patients have had like this in the past sometimes they have benefited from a low dose of lorazepam, will write this as an option as well. He may wish to get ENT involved and perhaps they can perform an Rebecca maneuver. if appropriate in their opinion. 07/29/16--This patient has not had any further nausea and vomiting. I switched around some of her medications yesterday and gave her the option of taking some Ativan potentially. She would like to advance her diet from clear liquids to something more solid and I agree. Unfortunately vertigo is out of my specific discipline and so I do not feel competent to perform the Rebecca maneuver on this patient but if you feel that her symptoms warranted she could certainly be referred to neurology or ENT to get this taken care of. This seems more like vertigo, however gastroenteritis is still the differential that she may be improving from. We will see how she does on a solid diet, will likely change her Protonix to p.o. tomorrow. What are we treating with the Cipro and Flagyl? 07/30/16--no further problems, safe to be discharged from my standpoint. Vertigo versus gastroenteritis? Current Visit: Yes (2) Constipation Status: Acute Assessment and plan: The patient states that she handles this with a single prune at home, but this is not a serious problem for the patient. Under no circumstances would she like to get another colonoscopy, nor does she wish to have an upper endoscopy, as she has related to me in no uncertain terms. We will certainly hold off on endoscopy for the present. 07/29/16--Treated with prunes as needed the patient. 07/30/16--Safe for discharge from a GI standpoint Current Visit: Yes Gastroenterology - PN: Subj Interval history: No new complaints, eating well. Exam (Progress Note) - Constitutional Vitals: Period Temp Pulse Resp BP Sys/Baez Pulse Ox Last 24 Hr 97.1 F-98.4 F 71-94 16-20 130-210/58-99 92-95 General appearance: no acute distress - Head Head exam: Present: normocephalic - Eye Eye exam: Present: EOMI - Respiratory Respiratory exam: Present: clear to auscultation bilaterally - Cardiovascular Cardiovascular exam: Present: regular rate and rhythm - GI/Abdominal GI/Abdominal exam: Present: normal bowel sounds, soft. Absent: guarding, tenderness, rebound - Back Exam Back exam: Present: normal inspection - Neurological Exam Neurological exam: Present: alert, oriented X3, CN II-XII intact. Absent: motor sensory deficit - Psychiatric Psychiatric exam: Present: normal affect, normal mood - Skin Skin exam: Present: warm Results - Labs CBC & BMP: 07/28/16 08:05 07/28/16 08:05
--- NOTE | 2016-07-30 15:15 | Ultrasound Report ---
Exam: US carotid duplex BI Date: 07/30/2016 12:00 PM Indication: Stroke Technique: Duplex scan of the bilateral carotid arteries using B-mode/grayscale imaging and Doppler spectral analysis and color flow. Findings: Right Flow velocities centimeters per second Common carotid artery: 56 Proximal ICA: 72 Distal ICA: 52 External carotid artery: 86 Vertebral artery: 48 with antegrade flow ICA/CCA ratio: 1.3 Measurements in millimeters Distal ICA: 5.8 Left: Flow velocities centimeters per second Common carotid artery: 73 Proximal ICA: 46 Distal ICA: 60 External carotid artery: 137 Vertebral artery: 48 with antegrade flow ICA/CCA ratio: 0.8 Measurements in millimeters Distal ICA: 5.3 Focal minimally calcified atherosclerotic plaque is noted at the proximal left internal carotid artery without significant luminal stenosis or velocity increase. Otherwise, no significant atherosclerotic plaque or luminal stenosis is evident within either internal carotid artery. Color flow is present in all visualized vessels with Doppler analysis. Impression: No evidence to suggest significant internal carotid artery stenosis by ultrasound criteria. Today studies were performed utilizing indirect NASCET criteria The ultrasound images were stored and captured PROCEDURE INTERPRETED AT [facility] DEPARTMENT OF RADIOLOGY Final Report Signed by: Lionel Estes
--- NOTE | 2016-07-30 15:31 | ECHO Report ---
Amina Ya Exam Date: 07/30/2016 12:14 Referring Physician: Technologist: Kiki CHOWDHURY Age: 85 Ht (in): Wt (lb): Gender: F Exam Location: [facility] ([place]) Echo Indications: CVA, HTN, nausea, vertigo, dizziness BP: / HR: Rhythm: Sinus Technical Quality: IMPRESSIONS Technically adequate study 2+ left atrial enlargement 2+ concentric LVH Normal LV systolic function with ejection fraction assessment be 65% without segmental wall motion normality Aortic sclerosis without stenosis 1+ tricuspid regurgitation with RVSP 25 mmHg plus RAP MEASUREMENTS (Male / Female) Normal Values 2D ECHO LV Diastolic Diameter PLAX 4.5 cm 4.2 - 5.9 / 3.9 - 5.3 cm LV Systolic Diameter PLAX 3.3 cm LV Fractional Shortening PLAX 25.5 % IVS Diastolic Thickness 1.5 cm 0.6 - 1.0 / 0.6 - 0.9 cm LVPW Diastolic Thickness 1.2 cm 0.6 - 1.0 / 0.6 - 0.9 cm RV Internal Dim ED PLAX 2.6 cm Aortic Root Diameter 2.6 cm LA Systolic Diameter LX 4.4 cm 3.0 - 4.0 / 2.7 - 3.8 cm DOPPLER TR Peak Velocity 250.0 cm/s TR Peak Gradient 25.0 mmHg FINDINGS Left Ventricle Moderately increased septal wall thickness. Mildly increased posterior wall thickness. Mild- moderate concentric left ventricular hypertrophy with diastolic dysfunction. Left ventricular ejection fraction is estimated at Right Ventricle Mildly increased right ventricular size. Right Atrium The right atrium is mildly enlarged. Left Atrium Moderately increased left atrial diameter. Mitral Valve Mildly thickened mitral valve with mild - moderate mitral regurgitation. Aortic Valve Aortic valve sclerosis without stenosis or regurgitation. Tricuspid Valve Morphologically normal tricuspid valve. Moderate tricuspid valve regurgitation. Tricuspid regurgitation velocities suggest a PAP of 25.0 mmHg + RAP. Pulmonic Valve Morphologically normal pulmonic valve. Trace pulmonary valve regurgitation. Pericardium No pericardial effusion. Aorta Normal size aortic root and proximal ascending aorta. Mitesh Jollye (Electronically Signed) Final Date: 30 July 2016 15:30
--- NOTE | 2016-07-30 17:13 | Cardiology Progress Note ---
I, Kirti George RN, am scribing for, and in the presence of, Mitesh Jolley MD 17:11. Assessment and Plan (1) CVA (cerebral vascular accident) Status: Acute Assessment and plan: Initial assessment 07/29/16: 1. 85-year-old WF with recently untreated severe hypertension ("I always forget to take them") who presented with persistent nausea and vertigo associated with trivial elevation of troponin of 0.15, now improved with meclizine 2. Reported previous breast mass; declined workup 3. MRI suggests possible recent CVA; defer to primary service. 4. Which echocardiogram in the morning to evaluate for structural heart disease 5. Do not suspect acute coronary syndrome 6. Would gradually bring blood pressure; observe for now as his come down from 200 to 150s systolic 07/30/[address]: [address] Holter monitor to evaluate for dysrhythmia; I see no atrial fibrillation the last couple of days, however her strip from July 27 could be a run of atrial fibrillation? 2. MRI brain with possible CVA; this does not seem to be a pattern consistent with cardioembolic cause, would value neurology's input particularly as she has severe dizziness, with no previous history of vertigo. 3. Would consider adding amlodipine if blood pressure systolic continues to be severely elevated. 4. Normal LV systolic function noted on echocardiogram Current Visit: Yes (2) Hypertension Status: Acute Current Visit: Yes (3) Nausea Status: Acute Current Visit: Yes (4) Vertigo Status: Acute Current Visit: Yes Cardiology - PN: Subj Interval history: Patient is seen resting in bed in no acute distress, family is at bedside. She denies chest pain, shortness of breath, palpitations. She does report that she is continues to be nauseated and get dizzy when she gets up. Her blood pressure appears to be slightly improved. She is in sinus rhythm with PACs, heart rate in the 80s. Ms. Ya still has significant vertigo although it is improved a bit today. If she gets moving around he gets much worse. Exam (Progress Note) - Constitutional Vitals: Period Temp Pulse Resp BP Sys/Baez Pulse Ox Last 24 Hr 98.0 F-98.4 F 76-94 16-18 130-175/58-90 93-95 General appearance: no acute distress, over weight - Head Head exam: Absent: abrasion, hematoma - Eye Eye exam: Absent: periorbital swelling, laceration to eyelids - Neck Neck exam: Absent: tenderness - Respiratory Respiratory exam: Present: clear to auscultation bilaterally. Absent: accessory muscle use, chest wall tenderness - Cardiovascular Cardiovascular exam: Present: irregular rhythm (Sinus with PACs) - GI/Abdominal GI/Abdominal exam: Present: normal bowel sounds, soft. Absent: distended, tenderness - Extremities Exam Extremities exam: Absent: edema - Neurological Exam Neurological exam: Present: alert, oriented X3 - Psychiatric Psychiatric exam: Present: normal affect, normal mood - Skin Skin exam: Present: warm, dry Result/EKG - Labs CBC & BMP: 07/28/16 08:05 07/28/16 08:05 Lab Results: I have reviewed the past 24 hour labs Labs: Laboratory Results - last 24 hr 07/30/16 06:18 Triglycerides 39 Cholesterol 185 LDL Cholesterol 102.0 VLDL Cholesterol 7.8 HDL Cholesterol 69 H Heart Disease Risk Ratio 2.68 - EKG EKG results: interpreted by me EKG shows: sinus rhythm (With PACs) IShola Randall Scott, MD, personally performed the services described in this documentation, ascribed by Kirti George RN in my presence, and it is both accurate and complete [id number] .
[2016-07-30] MEDS: ATORVASTATIN 40 MG TABLET PO SCH (21:37)
[2016-07-30] MEDS: APIXABAN 5 MG TABLET PO SCH (21:37)
[2016-07-30] MEDS: ONDANSETRON 4 MG/2 ML VIAL IV PRN (21:38)
[2016-07-31] MEDS: MECLIZINE 25 MG TABLET PO SCH ×2 (08:16→14:00)
[2016-07-31] MEDS: ENALAPRIL 10 MG TABLET PO SCH (08:16)
[2016-07-31] MEDS: PANTOPRAZOLE 40 MG VIAL IV SCH (08:16)
[2016-07-31] MEDS: DESITIN 4OZ/NYSTATIN 15 GRAM MIXTURE PASTE TOP SCH (08:16)
[2016-07-31] MEDS: APIXABAN 5 MG TABLET PO SCH (08:17)
[2016-07-31] MEDS: CARVEDILOL 6.25 MG TABLET PO SCH (08:17)
[2016-07-31] MEDS: ONDANSETRON 4 MG/2 ML VIAL IV PRN (08:17)
[2016-07-31] MEDS ORDERED: DIAZEPAM 2 MG TABLET PO PRN (12:12)
[2016-07-31 12:28] VITALS: BP 181/82
[2016-07-31] MEDS ORDERED: amLODIPine 5 MG TABLET PO SCH (12:30)
[2016-07-31] MEDS ORDERED: amLODIPine 10 MG TABLET PO SCH (12:38)
--- NOTE | 2016-07-31 12:54 | CT Report ---
CT head/brain wo con INDICATION: Altered mental status/confusion The total DLP is 997 mGy*cm. COMPARISON: MRI brain 07/29/[address] head 07/27/2016 Technique: Serial axial tomographic images of the brain were obtained without the use of intravenous contrast. Dose reduction: This CT exam was performed using one or more of the following dose reduction techniques: Automated exposure control, automated adjustment of the mA and/or KV according to patient size, or use of iterative reconstruction technique. Findings: Moderate generalized atrophy is noted with mild prominence of the sulci and cortical volume loss. Periventricular white matter hypodensity changes are noted bilaterally which do not demonstrate mass effect and are nonspecific but favored to represent sequela of chronic microvascular ischemia. There is no evidence of vascular territory infarct or acute intracranial hemorrhage. The mcclain-white matter differentiation is generally maintained. There is no hydrocephalus. The basilar cisterns are patent. The visualized paranasal sinuses, mastoid air cells and middle ear cavities are predominantly clear. The included orbits and their contents appear within normal limits. The visualized osseous structures and overlying soft tissues of the skull and face demonstrate no acute abnormality. IMPRESSION: No acute intracranial abnormality. Generalized atrophy and sequela of chronic microvascular ischemia. Findings are similar to prior. PROCEDURE INTERPRETED AT [facility] DEPARTMENT OF RADIOLOGY Final Report Signed by: Lionel Estes
--- NOTE | 2016-07-31 14:20 | Hospitalist Progress Note ---
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 Already reported to family will not pursue at this time. Current Visit: Yes (3) Hypertension Status: Acute Assessment and plan: coreg 6.25 mg po bid Current Visit: Yes (4) Elevated troponin I level Status: Acute Assessment and plan: asa, consult cardiology Current Visit: Yes Hospitalist: Subjective Interval history: Patient seen and examined. Spent 40 minutes with the family in arranging for her extended care. Heart regular rate and rhythm, lungs are clear to auscultation, abdomen positive bowel sounds soft and nontender. Dr. Jolley does not feel that she needs Eliquis and she is currently in sinus rhythm. We will switch her just to regular aspirin have her follow-up with a neurologist at [facility] when she is discharged from rehab. Family has assured me that they would set that up when the note the discharge date. She will be transferred to [facility] for rehabilitation. We have added Valium to her regimen to help with her vertigo. Exam - Constitutional Vitals: Period Temp Pulse Resp BP Sys/Baez Pulse Ox Last 24 Hr 97.8 F-98.7 F 58-81 16-18 159-190/72-89 92-100 Results - Labs CBC & BMP: 07/28/16 08:05 07/28/16 08:05 Specialty Discharge - Follow Up or Referrals
--- NOTE | 2016-07-31 15:17 | Neurology Consult Note ---
History of Present Illness History of present illness: Ms. Ya is a 85 year old female who is actually a fairly good historian who is accompanied by her [id number] who provide additional history. This past Friday she developed she awoke with difficulty caused by extreme nausea upon getting out of the bed. Patient is fairly stable when she is laying flat in bed or upright but when changing positions seems to become extremely nauseated. She does not have heartburn, indigestion, difficulty with swallowing , pain on swallowing, abdominal pain, or diarrhea. She was brought to the emergency room for this nausea and vomiting and has been admitted with hydration. Zofran does almost nothing and the Antivert does not appear to be effective for her. MRI of the brain revealed acute to subacute right subcortical lacunar infarct. Carotid ultrasound is unremarkable. Echocardiogram is unremarkable. At the baseline patient requires significant help. Functionally she has declined significantly. Home Medications Medication Instructions Recorded Confirmed Type Enalapril Tab [Vasotec Tab] 20 mg PO DAILY 07/29/16 07/29/16 History Atorvastatin [Lipitor] 40 mg PO BEDTIME tablet 07/30/16 Rx Carvedilol [Coreg] 6.25 mg PO BID tablet 07/30/16 Rx Meclizine [Antivert] 25 mg PO TID tablet 07/30/16 Rx Pantoprazole Tab [Protonix Tab] 40 mg PO DAILY #60 tablet 07/30/16 Rx Aspirin EC Tab 325 mg PO DAILY #0 tablet 07/31/16 Rx Diazepam Tab [Valium Tab] 2 mg PO QID PRN #30 tablet 07/31/16 Rx Enalapril Tab [Vasotec Tab] 20 mg PO DAILY #0 tablet 07/31/16 Rx Ondansetron Odt Tab [Zofran Odt] 4 mg PO Q6H #30 tablet 07/31/16 Rx amLODIPine [Norvasc] 10 mg PO DAILY tablet 07/31/16 Rx Allergies Allergy/AdvReac Type Severity Reaction Status Date / Time Penicillins Allergy Unknown Unknown/Unable Verified 08/16/15 10:33 to obtain 12 point system: reviewed and no additional remarkable complaints except as stated Medical,Surgical,& Family Hx - Medical History Cardio: History of: Hypertension Psychological: History of: Anxiety Disorders - Surgical History Reproductive Surgeries: Surgical HX of;: Hysterectomy - Family History Family History: Reports;: Family Cancer (COLON), Family Hypertension Denies;: Family Diabetes, Family Heart Disease, Family Hematology, Family Psychiatric Problems, Family Stroke - Social History Smoking Status: Never smoker Frequency of Alcohol Use: None Type of Drug Use: None Exam - Constitutional Vitals: Period Temp Pulse Resp BP Sys/Baez Pulse Ox Last 24 Hr 97.8 F-98.7 F 58-81 16-18 159-190/72-89 92-100 Exam: GENERAL: Patient is in no acute distress. NECK: Neck is supple. There is no JVD. No carotid bruits present. No thyroid masses. CVS: First and second heart sounds are normal. There is no S3 present. Regular rate and rhythm. RESPIRATORY: Lungs are clear to auscultation without any rales or rhonchi. ABDOMEN: Soft and non-tender. Bowel sounds are present. There is no hepatosplenomegaly. EXT: There is no palpable edema. Peripheral pulses are present. Skin: No rashes Central Nervous system: General: Alert, awake and Oriented x 3 Speech: Fluent Comprehension: Intact and normal Facial expressions: Normal Cranial Nerves: CN1/Olfactory: Normal CN II/ Optic: Normal, Visual Sesay unreliable CN III, and : NORBERT & EOMI CN V: Normal & intact CN VII: face is symmetric CNVIII: Normal CN XI/X/XI/XII: Intact and Normal Motor: Bulk and Tone is normal. Strength in the right 2-3/5 Strength in the left 2-3/5 Sensory: Grossly intact for all the modalities of PP, LT and temp sense Reflexes: 1+ and symmetrical Cerebellar function: Slow finger to nose and heel to coronado testing. Toes: Equivocal Gait: Not tested Results - Labs CBC & BMP: 07/28/16 08:05 07/28/16 08:05 Assessment and Plan (1) CVA (cerebral vascular accident) Status: Acute Assessment and plan: Add Plavix 75 mg. P.o. daily Consult TMR Current Visit: Yes Specialty Discharge - Follow Up or Referrals
--- NOTE | 2016-07-31 16:55 | Cardiology Progress Note ---
I, Kirti George RN, am scribing for, and in the presence of, Mitesh Jolley MD 16:55. Assessment and Plan (1) CVA (cerebral vascular accident) Status: Acute Assessment and plan: Initial assessment 07/29/16: 1. 85-year-old WF with recently untreated severe hypertension ("I always forget to take them") who presented with persistent nausea and vertigo associated with trivial elevation of troponin of 0.15, now improved with meclizine 2. Reported previous breast mass; declined workup 3. MRI suggests possible recent CVA; defer to primary service. 4. Which echocardiogram in the morning to evaluate for structural heart disease 5. Do not suspect acute coronary syndrome 6. Would gradually bring blood pressure; observe for now as his come down from 200 to 150s systolic 07/30/2016 update: 1. Place Holter monitor to evaluate for dysrhythmia; I see no atrial fibrillation the last couple of days, however her strip from July 27 could be a run of atrial fibrillation? 2. MRI brain with possible CVA; this does not seem to be a pattern consistent with cardioembolic cause, would value neurology's input particularly as she has severe dizziness, with no previous history of vertigo. 3. Would consider adding amlodipine if blood pressure systolic continues to be severely elevated. 4. Normal LV systolic function noted on echocardiogram 07/31/2016 update: 1. I would defer to Dr. Lewis/primary service, regard to the best anticoagulation medication for her given her small stroke, and vertigo symptoms. However I do not see any clear atrial fibrillation would require to be off on anticoagulation from a cardiac standpoint. Normal LV function with LVH is been noted. 2. I will repeat her Holter monitor 3. She can be discharged as afternoon for my standpoint 4. She may benefit from rehabilitation, but her vertical may be an issue preventing her from this. 5. Continue monitor blood pressure and increase antihypertensive medication as needed. Current Visit: Yes (2) Hypertension Status: Acute Current Visit: Yes (3) Nausea Status: Acute Current Visit: Yes (4) Vertigo Status: Acute Current Visit: Yes Cardiology - PN: Subj Interval history: Ms. Ya is seen resting in bed in no acute distress. Family is at bedside. They are hoping she will be transferred to rehab facility today. Denies chest pain, shortness of breath, palpitations. She continues to be dizzy and nauseated when she gets up, but states she is not as long as she is lying in bed. Her pressures continue to be elevated, she is currently in sinus rhythm with PACs heart rate in the 70s. Exam (Progress Note) - Constitutional Vitals: Period Temp Pulse Resp BP Sys/Baez Pulse Ox Last 24 Hr 97.8 F-98.7 F 62-81 16-20 159-190/72-89 94-100 General appearance: no acute distress, over weight - Head Head exam: Absent: abrasion, hematoma - Eye Eye exam: Absent: periorbital swelling, laceration to eyelids - Neck Neck exam: Absent: tenderness - Respiratory Respiratory exam: Present: clear to auscultation bilaterally. Absent: accessory muscle use, chest wall tenderness - Cardiovascular Cardiovascular exam: Present: regular rate and rhythm (Sinus rhythm with PACs) - GI/Abdominal GI/Abdominal exam: Present: normal bowel sounds, soft. Absent: distended, tenderness - Extremities Exam Extremities exam: Absent: edema - Neurological Exam Neurological exam: Present: alert, oriented X3 - Psychiatric Psychiatric exam: Present: normal affect, normal mood - Skin Skin exam: Present: warm, dry Result/EKG - Labs CBC & BMP: 07/28/16 08:05 07/28/16 08:05 Lab Results: I have reviewed the past 24 hour labs - EKG EKG results: interpreted by me EKG shows: sinus rhythm (With PACs) Shola Bailey Randall Scott, MD, personally performed the services described in this documentation, ascribed by Kirti George RN in my presence, and it is both accurate and complete [id number] .
== END 2016-07-31 16:30 | DRG 149 ==
LOC: EDBD → EDUNIT# → N.ED 11:37 → SUATTDRO 14:29 → N.EDINP 14:29 → N.TELEN 15:04 → N.5E 07-29 15:53
PROVIDERS: ADMIT Internal Medicine Pulmonary Disease; ATTEND Internal Medicine